=== PATIENT | male | born 1945 | race Two or more races ===

== ENCOUNTER 2023-03-17 07:12 | Day surgery (SDC) | payer OTHER ==
[2023-03-17] MEDS ORDERED: CARAFATE1 GM PO (12:07)
[2023-03-17] MEDS ORDERED: OMEPRAZOLE40 MG PO (12:07)
== END 2023-03-17 13:00 | disposition home or self-care (01) ==
LOC: AMB-ENDOS 07:12
PROVIDERS: ATTEND Surgery
DX: K63.5 Polyp of colon (principal); K29.80 Duodenitis without bleeding; K29.60 Other gastritis without bleeding; K57.30 Diverticulosis of large intestine without perforation or abscess without bleeding; R19.5 Other fecal abnormalities; K62.5 Hemorrhage of anus and rectum; K59.09 Other constipation; R14.0 Abdominal distension (gaseous); K64.8 Other hemorrhoids; K26.9 Duodenal ulcer, unspecified as acute or chronic, without hemorrhage or perforation; K44.9 Diaphragmatic hernia without obstruction or gangrene; Z20.822 Contact with and (suspected) exposure to COVID-19